=== PATIENT | female | born 1995 | race African-American/Black ===

== ENCOUNTER 2016-07-11 13:53 | Emergency (ER) | payer OTHER ==
[~2016-07-11] VITALS: Ht 157.5 cm; Wt 130.0 kg
[~2016-07-11 13:53] MED LIST: ONDA4TAB7 PO
[2016-07-11 13:56] VITALS: BP 144/75; PULSE 82; RESP 20; TEMP 98
--- NOTE | 2016-07-11 15:01 | PD ---
HPI Chief Complaint: Abdominal Pain Time Seen by Provider: 14:05 Travel History International Travel<30 days: No Contact w/Intl Traveler<30days: No Traveled to known affect area: No History of Present Illness HPI The patient was seen and examined in the presence of the nurse. she complains of epigastric discomfort. That we believe she's had this every day for months. She's had workups for it without any sort of answer. She reports negative CT of abdomen and pelvis in [facility] emergency room. She saw her physician today and had a negative test. She literally came from that office to the emergency room. She reports she has no idea what that physician diagnosed her as. Her symptoms seem mild. They are chronic. No alleviating factors. PFSH Past Medical History Chest Pain: Yes Diminished Hearing: No Genitourinary: Yes (UTI) Headaches: Yes Immunizations Current: Yes Tetanus Vaccination: Unknown Influenza Vaccination: No ?: Unknown LMP: 12/15/15 : 0 Past Surgical History Surgical History: No Previous Surgery Social History Alcohol Use: No Tobacco Use: No Substance Use: No Allergies-Medications (Allergen,Severity, Reaction): Coded Allergies: No Known Allergies (Verified , 07/11/16) Reported Meds & Prescriptions Reported Meds & Active Scripts Active Ondansetron Odt (Ondansetron HCl) 4 Mg Tab 4 Mg PO Q6H PRN Review of Systems General / Constitutional: No: Fever Eyes: No: Visual changes HENT: No: Headaches Cardiovascular: No: Chest Pain or Discomfort Respiratory: No: Shortness of Breath Gastrointestinal: Positive: Abdominal Pain Genitourinary: No: Dysuria Musculoskeletal: No: Pain Skin: No Rash Neurologic: No: Weakness Psychiatric: No: Depression Endocrine: No: Polydipsia Hematologic/Lymphatic: No: Easy Bruising Physical Exam Narrative GASTROINTESTINAL: Abdomen soft, obese, non-tender, nondistended. Positive bowel sounds. No hepato-splenomegaly, or palpable masses. No guarding. SKIN: Inspection shows no rash or ulcers. Palpation shows no induration or nodules. NECK: Symmetrical appearance, midline trachea. No mass or crepitus. Thyroid without enlargement, tenderness, or mass. Data Data Last Documented VS Vital Signs Date Time Temp Pulse Resp B/P Pulse Ox O2 Delivery O2 Flow Rate FiO2 07/11/16 14:03 18 07/11/16 13:56 98.0 82 144/75 [facility] Medical Decision Making Medical Screen Exam Complete: Yes Emergency Medical Condition: Yes Medical Record Reviewed: Yes Differential Diagnosis Dyspepsia, peptic ulcer disease, hepatitis Narrative Course I have reviewed the patient's electronic medical record. This patient seems very stable. She is a 21-year-old with normal vital sign and months of vague epigastric symptoms but a soft benign nontender abdomen and reportedly had a negative CT of abdomen and pelvis. She had a negative test earlier today I don't see any indications for emergent studies. Recommend primary care follow -up Suggested she consider some [id number] acid blocking medication while she obtains primary care workup Diagnosis Primary Impression: Chronic epigastric pain Additional Instructions: The patient was advised to follow up with their physician and return if they worsen. Take [id number] Zantac twice a day Med/Other Pt SpecificInfo: Other Disposition: 01 DISCHARGE HOME Condition: Stable Timo Whitaker MD Jul 11, 2016 15:01
[2016-07-11 15:16] VITALS: BP 136/71; PULSE 86; RESP 18; O2SAT 99
== END 2016-07-11 15:17 | disposition home or self-care (01) ==
LOC: NEPB 13:53
DX: R10.13 Epigastric pain (principal); G89.29 Other chronic pain
CPT/HCPCS: 99283

== ENCOUNTER 2016-10-15 13:47 | Emergency (ER) | payer BC, OTHER ==
[~2016-10-15] VITALS: Ht 157.5 cm; Wt 130.0 kg
[2016-10-15 13:49] VITALS: BP 145/94; PULSE 106; RESP 15; TEMP 98.2; O2SAT 99
--- NOTE | 2016-10-15 14:04 | PD ---
HPI . headache for 3 weeks Chief Complaint: Headache Time Seen by Provider: 14:01 Travel History International Travel<30 days: No Contact w/Intl Traveler<30days: No Traveled to known affect area: No History of Present Illness HPI 21-year-old female with history of headaches here with complaints of headache for the past 3 weeks. Patient admits to frontal headache that has been present for the past 3 weeks. She says it is not improving with Tylenol. She rates the pain as 10/10 when she first wakes up in the morning. As the day goes by it somewhat eases, but is still present. She denies any visual changes. She denies any numbness or tingling. She has no other complaints. Her last eye exam was approximately one year ago. She tells me that she had similar issues in the past and was told that there was nothing acute going on. She's been fairly headache free except for the past 3 weeks. PFSH Past Medical History Chest Pain: Yes Diminished Hearing: No Genitourinary: Yes (UTI) Headaches: Yes Immunizations Current: Yes ?: Unknown : 0 Social History Alcohol Use: No Tobacco Use: No Substance Use: No Allergies-Medications (Allergen,Severity, Reaction): Coded Allergies: No Known Allergies (Verified , 10/15/16) Reported Meds & Prescriptions Reported Meds & Active Scripts Active Ibuprofen 800 Mg Tab 800 Mg PO TID Augmentin (Amoxicillin-Clavulanate) 875-125 mg Tab 875 Mg PO BID not for use in CrCl <30 ml/min. Review of Systems General / Constitutional: No: Fever Eyes: No: Visual changes HENT: Positive: Headaches Cardiovascular: No: Chest Pain or Discomfort Respiratory: No: Shortness of Breath Gastrointestinal: No: Abdominal Pain Genitourinary: No: Dysuria Musculoskeletal: No: Pain Skin: No Rash Neurologic: No: Weakness Psychiatric: No: Depression Endocrine: No: Polydipsia Hematologic/Lymphatic: No: Easy Bruising Physical Exam Narrative GENERAL: AAO x 3, no acute distress, Well-nourished, well-developed patient. SKIN: Warm and dry. No visible rashes or bruising. HEAD: Normocephalic and atraumatic. EYES: No scleral icterus. No injection or drainage. EOM intact, PERRLA ENT: No nasal drainage noted. Mucous membranes pink. Airway patent. Cloudy TMs bilaterally. Frontal sinus tenderness on palpation. Posterior pharynx clear. NECK: Supple, trachea midline. No JVD. No lymphadenopathy CARDIOVASCULAR: Regular rate and rhythm without murmurs, gallops, or rubs. RESPIRATORY: Breath sounds equal bilaterally. No accessory muscle use. No rhonchi or rales. GASTROINTESTINAL: Visual inspection normal EXTREMITIES: No cyanosis or edema. NEURO: CN II through XII intact, building consultant strength normal bilaterally. Upper and lower extremity strength normal bilaterally. BACK: Nontender without obvious deformity. No CVA tenderness. PSYCH: AAO x 3, normal affect. Data Data Last Documented VS Vital Signs Date Time Temp Pulse Resp B/P Pulse Ox O2 Delivery O2 Flow Rate FiO2 10/15/16 13:49 98.2 106 15 145/94 99 MDM Medical Decision Making Medical Screen Exam Complete: Yes Emergency Medical Condition: Yes Medical Record Reviewed: Yes Differential Diagnosis Sinus headache, sinusitis, less likely migraines Narrative Course 21-year-old female with history of headaches here with complaints of headache for the past 3 weeks. Patient admits to frontal headache that has been present for the past 3 weeks. She says it is not improving with Tylenol. She rates the pain as 10/10 when she first wakes up in the morning. As the day goes by it somewhat eases, but is still present. She denies any visual changes. She denies any numbness or tingling. She has no other complaints. Her last eye exam was approximately one year ago. She tells me that she had similar issues in the past and was told that there was nothing acute going on. She's been fairly headache free except for the past 3 weeks. Patient seen and examined. She appears to have acute sinusitis on physical examination. This explains her frontal headache. I do not see a need for CT imaging of the brain. This headache is consistent with sinus pressure from sinusitis. We will go ahead and treat her with a course of antibiotics. I've explained that unfortunately the weather is contributing to her issues. I recommend she follow-up with her primary care provider for further workup and treatment. Patient verbalized understanding of instructions, questions were answered, and thanked me for their care. I advised them if their condition worsens, please return to the nearest emergency room for further care. Diagnosis Primary Impression: Acute sinusitis Qualified Code: J01.10 - Acute frontal sinusitis, recurrence not specified Additional Impression: Sinus headache Departure Forms: Tests/Procedures, Work Release Enter return to work date: October 15, 2016 Special Instructions: was seen in the Emergency department today. Additional Instructions: Please return to emergency department if your symptoms return or worsen. Follow up with your primary care provider. Take medications as prescribed. Med/Other Pt SpecificInfo: Prescription(s) given Scripts Ibuprofen 800 Mg [id number] Mg PO TID #21 TAB Prov:Brittni Salcedo DO 10/15/16 Amoxicillin-Clavulanate (Augmentin)875-125 mg [id number] Mg PO BID #20 TAB not for use in CrCl <30 ml/min. Prov:Brittni Salcedo DO 10/15/16 Disposition: 01 DISCHARGE HOME Condition: Stable Lisandra Norman October 15, 2016 14:04
[2016-10-15] MEDS ORDERED: IBUP800T23 PO (14:05)
[2016-10-15] MEDS ORDERED: AUGM875T PO (14:05)
== END 2016-10-15 14:10 | disposition home or self-care (01) ==
LOC: NEPK 13:47
DX: J01.10 Acute frontal sinusitis, unspecified (principal)
CPT/HCPCS: 99283